=== PATIENT | female | born 1990 | race Caucasian/White ===

== ENCOUNTER → 2016-06-02 09:23 | Outpatient (CLI) | payer MEDICAID | END | disposition home or self-care (01) | LOC: D.MRI 09:23 | DX: M54.12 Radiculopathy, cervical region (principal) ==

== ENCOUNTER → 2018-01-07 14:09 | Outpatient (CLI) | payer MEDICAID ==
[2018-01-07 15:11] LABS: BASOPHILS 1.5 % (0-2); EOSINOPHILS 4.8 % (0-7); HEMATOCRIT 34.5 % (36.0-48.0); IMMATURE GRANULOCYTES 0.2 % (0-5); LYMPHOCYTES 25.1 % (15-50); MCH 26.6 pg (26.0-34.0); MCHC 31.9 g/dL (31.0-37.0); MCV 83.5 fL (80.0-100.0); MEAN PLATELET VOLUME 9.6 fL (7.4-10.4); MONOCYTES 8.4 % (2-11); PLATELET COUNT 281 10x3/uL (130-400); RBC 4.13 10x6/uL (4.00-5.40); WBC 8.7 10x3/uL (4.8-10.8)
[2018-01-07 15:37] LABS: ALBUMIN 3.2 g/dL (3.4-5.0); ALKALINE PHOSPHATASE 58 U/L (46-116); ALT (SGPT) 22 U/L (10-68); BILIRUBIN - TOTAL 0.13 mg/dL (0.2-1.3); CALC OSMOLALITY 277 mosm/kg (275-300); CALCIUM 8.3 mg/dL (8.5-10.1); CARBON DIOXIDE 28.8 mmol/L (21.0-32.0); CHLORIDE - SERUM 106 mmol/L (98-107); CREATININE - SERUM 0.8 mg/dL (0.6-1.3); GLUCOSE 86 mg/dL (74-106); POTASSIUM - SERUM 3.7 mmol/L (3.5-5.1); PROTEIN - SERUM 6.5 g/dL (6.4-8.2); SODIUM 141 mmol/L (136-145); T4 THYROXIN - FREE 0.94 ng/dL (0.76-1.46); THYROID STIMULATING HORMONE 0.94 uIU/mL (0.36-3.74); UREA NITROGEN 8 mg/dL (7-18); eGFR NON AFRICAN AMERICAN 90 mL/min (90-120)
== END | disposition home or self-care (01) ==
LOC: D.RAD 14:09
PROVIDERS: Family Medicine
DX: R63.4 Abnormal weight loss (principal); F34.1 Dysthymic disorder; M25.519 Pain in unspecified shoulder